=== PATIENT | female | born 1970 | race Caucasian/White ===

== ENCOUNTER 2017-06-26 21:42 | Emergency (ER) | payer OTHER ==
[~2017-06-26] VITALS: Ht 157.5 cm; Wt 59.1 kg
[2017-06-26] MEDS ORDERED: XULANE1 TDM TD (21:59)
[2017-06-26] MEDS ORDERED: NORCO 325 MG-51 TA1 PO (23:30)
[2017-06-26 23:45] VITALS: BP 157/94
== END 2017-06-26 23:45 | disposition home or self-care (01) ==
LOC: ED 21:42
DX: S52.591A Other fractures of lower end of right radius, initial encounter for closed fracture (principal); S50.812A Abrasion of left forearm, initial encounter; W01.10XA Fall on same level from slipping, tripping and stumbling with subsequent striking against unspecified object, initial encounter
CPT/HCPCS: 90715